=== PATIENT | female | born 1950 | race Caucasian/White ===

== ENCOUNTER 2016-09-22 02:08 | Emergency (ER) | payer MEDICARE, OTHER ==
[~2016-09-22] VITALS: Ht 170.2 cm; Wt 86.4 kg
[2016-09-22] MEDS ORDERED: BLOOD THINNER PO (02:34)
[2016-09-22 05:30] VITALS: BP 129/78
== END 2016-09-22 06:59 | disposition home or self-care (01) ==
LOC: EMS 02:11
DX: S70.02XA Contusion of left hip, initial encounter (principal); I50.9 Heart failure, unspecified; J44.9 Chronic obstructive pulmonary disease, unspecified; J45.909 Unspecified asthma, uncomplicated; F17.210 Nicotine dependence, cigarettes, uncomplicated; Z95.0 Presence of cardiac pacemaker; Z88.1 Allergy status to other antibiotic agents; Z88.8 Allergy status to other drugs, medicaments and biological substances; W19.XXXA Unspecified fall, initial encounter; Y93.E8 Activity, other personal hygiene; Y92.89 Other specified places as the place of occurrence of the external cause; Y99.8 Other external cause status
CPT/HCPCS: 72192; 99284

== ENCOUNTER 2016-12-21 02:15 | Emergency (ER) | payer MEDICARE, OTHER ==
[~2016-12-21] VITALS: Ht 170.2 cm; Wt 86.4 kg
[~2016-12-21 02:15] MED LIST: BLOOD THINNER PO
[2016-12-21] MEDS ORDERED: DILT90 PO (02:39)
[2016-12-21] MEDS ORDERED: ADV100 IH (02:39)
[2016-12-21] MEDS ORDERED: BUPR1FIL3 SL (02:39)
[2016-12-21] MEDS ORDERED: CARI6CAP PO (02:39)
[2016-12-21] MEDS ORDERED: CYCL10 PO (02:39)
[2016-12-21] MEDS ORDERED: AZIT250T9 PO (02:39)
[2016-12-21] MEDS ORDERED: LAMO100 PO (02:39)
[2016-12-21] MEDS ORDERED: FURO40 PO (02:39)
[2016-12-21] MEDS ORDERED: ALBU8HFA4 IH ×2 (02:39→16:57)
[2016-12-21] MEDS ORDERED: OMEP20 PO (02:39)
[2016-12-21] MEDS ORDERED: LAMO200T7 PO (02:39)
[2016-12-21 03:04] LABS: CALCIUM, TOTAL 8.4 mg/dL (8.8-10.5); CREATININE 1.03 mg/dL (0.60-1.30); POTASSIUM 3.6 mmol/L (3.5-5.1)
[2016-12-21 03:06] LABS: ALBUMIN 3.4 g/dL (3.4-5.0); BILIRUBIN,TOTAL 0.9 mg/dL (0.1-1.0); TOTAL PROTEIN, SERUM 6.1 g/dL (6.4-8.2)
[2016-12-21 03:09] LABS: BASOPHILS # (AUTO) 0.01 K/uL (0.00-0.20); BASOPHILS % (AUTO) 0.2 % (0.0-2.0); EOSINOPHILS # (AUTO) 0.17 K/uL (0.00-0.70); EOSINOPHILS % (AUTO) 3.05 % (1.0-6.0); LYMPHOCYTES # (AUTO) 1.1 K/uL (1.0-4.8); MEAN CORPUSCULAR HEMOGLOBIN 34.4 pg (26.0-34.0); MEAN CORPUSCULAR HGB CONC 33.5 G/dL (31.0-37.0); MEAN CORPUSCULAR VOLUME 103 fL (80-100); MONOCYTES # (AUTO) 0.4 K/uL (0.1-1.0); MONOCYTES % (AUTO) 7.4 % (2.0-9.0); NEUTROPHILS # (AUTO) 3.8 K/uL (1.8-7.7); NEUTROPHILS % (AUTO) 69.3 % (40.0-70.0); PLATELET COUNT (AUTO) 145 K/uL (150-450); RED BLOOD CELL COUNT(AUTO) 2.92 MIL/uL (4.00-5.20); RED CELL DISTRIBUTION WIDTH 15.5 % (11.5-14.5)
[2016-12-21] MEDS ORDERED: ALBUTEROL SULFATE 2.5 MG/0.5 ML NEB SOLUTION NEB ONE (04:30)
[2016-12-21] MEDS ORDERED: 0.9% SODIUM CHLORIDE 5 ML NEB SOLUTION NEB ONE (04:32)
[2016-12-21 05:08] VITALS: BP 132/63
[2016-12-21] MEDS ORDERED: BUPR1FIL SL (16:57)
[2016-12-21] MEDS ORDERED: BUME1TAB17 PO (16:57)
[2016-12-21] MEDS ORDERED: KDUR10 PO (16:57)
[2016-12-21] MEDS ORDERED: ADV250 IH (16:57)
[2016-12-21] MEDS ORDERED: FLUT16H NASAL (16:57)
[2016-12-21] MEDS ORDERED: VITAD1000 PO (16:57)
[2016-12-21] MEDS ORDERED: SLOWK8 PO (17:15)
[2016-12-21] MEDS ORDERED: RIVA20TA PO (17:15)
== END 2016-12-21 05:33 | disposition home or self-care (01) ==
LOC: EMS 02:17
DX: J44.9 Chronic obstructive pulmonary disease, unspecified (principal); F17.210 Nicotine dependence, cigarettes, uncomplicated; I11.0 Hypertensive heart disease with heart failure; I50.9 Heart failure, unspecified; Z95.0 Presence of cardiac pacemaker; Z88.1 Allergy status to other antibiotic agents; Z88.8 Allergy status to other drugs, medicaments and biological substances
CPT/HCPCS: 93005; 94640; 99285

== ENCOUNTER 2016-12-21 16:44 | Inpatient (IN) | payer MEDICARE, OTHER ==
[~2016-12-21] VITALS: Ht 170.2 cm; Wt 97.3 kg
[~2016-12-21 16:44] MED LIST changes: +ADV100 IH; +ALBU8HFA4 IH; +AZIT250T9 PO; +BUPR1FIL3 SL; +CARI6CAP PO; +CYCL10 PO; +DILT90 PO; +FURO40 PO; +LAMO100 PO; +LAMO200T7 PO; +OMEP20 PO
[2016-12-21] MEDS ORDERED: KDUR10 PO (16:57)
[2016-12-21] MEDS ORDERED: BUPR1FIL SL (16:57)
[2016-12-21] MEDS ORDERED: VITAD1000 PO (16:57)
[2016-12-21] MEDS ORDERED: ADV250 IH (16:57)
[2016-12-21] MEDS ORDERED: ALBU8HFA4 IH (16:57)
[2016-12-21] MEDS ORDERED: BUME1TAB17 PO (16:57)
[2016-12-21] MEDS ORDERED: FLUT16H NASAL (16:57)
[2016-12-21] MEDS ORDERED: MethylPREDNISolone SOD SUCC 125 MG/2 ML VIAL IVP ONE (17:15)
[2016-12-21] MEDS ORDERED: ALBUTEROL SULFATE 5 MG/ML 20 ML NEB SOLN [BULK] NEB ONE (17:15)
[2016-12-21] MEDS ORDERED: IPRATROPIUM BROMIDE 0.5 MG/2.5 ML NEB SOLUTION NEB ONE (17:15)
[2016-12-21] MEDS ORDERED: RIVA20TA PO (17:15)
[2016-12-21] MEDS ORDERED: SLOWK8 PO (17:15)
[2016-12-21] MEDS ORDERED: 0.9% SODIUM CHLORIDE 5 ML NEB SOLUTION NEB ONE ×2 (17:30→20:22)
[2016-12-21 17:50] LABS: ANION GAP 3 mmol/L (8-16); CALCIUM, TOTAL 8.5 mg/dL (8.8-10.5); CARBON DIOXIDE 31 mmol/L (22-29); CHLORIDE 104 mmol/L (98-107); CREATININE 0.84 mg/dL (0.60-1.30); GLOMERULAR FILTR. RATE CALC > 60 mL/min (>60); GLUCOSE,RANDOM 136 mg/dL (70-110); POTASSIUM 3.5 mmol/L (3.5-5.1); SODIUM SERUM 138 mmol/L (136-145); UREA NITROGEN, BLOOD 14 mg/dL (7-18)
[2016-12-21 17:56] LABS: ALANINE AMINOTRANSFERASE 22 U/L (12-78); ALBUMIN 3.6 g/dL (3.4-5.0); ALKALINE PHOSPHATASE 103 U/L (46-116); ASPARTATE AMINOTRANSFERASE 21 U/L (15-37); TOTAL PROTEIN, SERUM 6.3 g/dL (6.4-8.2)
[2016-12-21 17:59] LABS: B-TYPE NATRIURETIC PEPTIDE 322 pg/mL (0-100)
[2016-12-21 18:12] LABS: BASOPHILS % (AUTO) 0.2 % (0.0-2.0); EOSINOPHILS % (AUTO) 2.4 % (1.0-6.0); HEMATOCRIT 29.1 % (36-46); LYMPHOCYTES # (AUTO) 1.2 K/uL (1.0-4.8); LYMPHOCYTES % (AUTO) 22.3 % (22.0-44.0); MEAN CORPUSCULAR HEMOGLOBIN 34.9 pg (26.0-34.0); MEAN CORPUSCULAR HGB CONC 34.4 G/dL (31.0-37.0); MEAN CORPUSCULAR VOLUME 102 fL (80-100); MONOCYTES # (AUTO) 0.4 K/uL (0.1-1.0); MONOCYTES % (AUTO) 6.7 % (2.0-9.0); NEUTROPHILS # (AUTO) 3.8 K/uL (1.8-7.7); NEUTROPHILS % (AUTO) 68.4 % (40.0-70.0); PLATELET COUNT (AUTO) 151 K/uL (150-450); RED BLOOD CELL COUNT(AUTO) 2.86 MIL/uL (4.00-5.20); RED CELL DISTRIBUTION WIDTH 15.1 % (11.5-14.5)
[2016-12-21] MEDS ORDERED: FUROSEMIDE 40 MG/4 ML VIAL IVP ONE (18:15)
[2016-12-21 18:37] LABS: ABG A-A DIFF O2 35.2 mmHg (10-20.0); ABG BASE EXCESS 6.6 mmol/L (-2.0-3.0); ABG HCO3 29.7 mmol/L (22.0-26.0); ABG METHEMOGLOBIN 0.1 % (0.0-1.5); ABG OXYGEN CONTENT 13.4 mL/dL (15.0-23.0); ABG OXYGEN SATURATION 91.6 % (95.0-98.0); ABG OXYHEMOGLOBIN 87.8 % (94.0-100.0); ABG PCO2 45 mmHg (35-45); ABG PH 7.453 (7.35-7.450); ABG TOTAL HEMOGLOBIN 10.8 G/dL (12.0-18.0); SITE, BLOOD GAS RT RADIAL; SOURCE, BLOOD GAS ARTERIAL; TEMPERATURE, FAHRENHEIT, BG 98.6 FAHREN (96.0-98.6)
[2016-12-21 18:38] LABS: O2 DEVICE,BLOOD GAS ROOM AIR (ROOM AIR)
[2016-12-21] MEDS ORDERED: 0.9% SODIUM CHLORIDE 10 ML SYRINGE IVP PRN (19:30)
[2016-12-21] MEDS ORDERED: ACETAMINOPHEN 325 MG TABLET PO PRN ×2 (19:30→20:30)
[2016-12-21] MEDS ORDERED: IPRATROPIUM BROMIDE 0.5 MG/2.5 ML NEB SOLUTION NEB SCH (20:00)
[2016-12-21] MEDS ORDERED: ALBUTEROL SULFATE 2.5 MG/0.5 ML NEB SOLUTION NEB SCH (20:00)
[2016-12-21] MEDS ORDERED: MAGNESIUM HYDROXIDE SUSPENSION 30 ML UDCUP PO PRN (20:30)
[2016-12-21] MEDS ORDERED: IPRATROPIUM BROMIDE 0.5 MG/2.5 ML NEB SOLUTION NEB PRN (20:30)
[2016-12-21] MEDS ORDERED: ZOLPIDEM TARTRATE 5 MG TABLET PO PRN (20:30)
[2016-12-21] MEDS ORDERED: BISACODYL 10 MG RECTAL RECTAL SUPPOSITORY PR PRN (20:30)
[2016-12-21] MEDS ORDERED: ALBUTEROL SULFATE 2.5 MG/0.5 ML NEB SOLUTION NEB PRN (20:30)
[2016-12-21] MEDS ORDERED: ONDANSETRON HCL 4 MG/2 ML VIAL IVP PRN (20:30)
[2016-12-21 20:35] VITALS: BP 123/61
[2016-12-21] MEDS ORDERED: SODIUM CHLORIDE 0.9% 250 ML IV ONE (20:43)
[2016-12-21] MEDS ORDERED: CefTRIAXone 1 GM/DEXTROSE 50 ML IV SCH (21:00)
[2016-12-21] MEDS: BENZONATATE 100 MG CAPSULE PO SCH (22:04)
[2016-12-21] MEDS: DILTIAZEM HCL 90 MG SR CAPSULE PO SCH (22:04)
[2016-12-21] MEDS: GuaiFENesin SR 600 MG ER TABLET PO SCH (22:04)
[2016-12-21] MEDS: DOCUSATE SODIUM 100 MG CAPSULE PO SCH (22:04)
[2016-12-21] MEDS: CHOLECALCIFEROL (VIT D3) 2,000 UNITS TABLET PO SCH (22:04)
[2016-12-21] MEDS: HYDROCODONE/ACETAMINOPHEN 5-325 MG TABLET PO PRN (22:05)
[2016-12-22] MEDS: MethylPREDNISolone SOD SUCC 125 MG/2 ML VIAL IVP SCH ×3 (00:12→16:58)
[2016-12-22] MEDS: HEPARIN SODIUM,PORCINE 5,000 UNITS/ML VIAL SQ SCH ×2 (00:12→08:00)
[2016-12-22] MEDS: AZITHROMYCIN 500 MG/NS 250 ML IV SCH ×2 (00:13→20:38)
[2016-12-22 00:29] VITALS: BP 116/68
[2016-12-22] MEDS: ALBUTEROL SULFATE 2.5 MG/0.5 ML NEB SOLUTION NEB SCH ×4 (02:06→20:34)
[2016-12-22] MEDS: IPRATROPIUM BROMIDE 0.5 MG/2.5 ML NEB SOLUTION NEB SCH ×4 (02:06→20:34)
[2016-12-22 05:51] VITALS: BP 122/61
[2016-12-22 07:07] LABS: BASOPHILS % (AUTO) 1.2 % (0.0-2.0); EOSINOPHILS % (AUTO) 0 % (1.0-6.0); HEMATOCRIT 33.1 % (36-46); HEMOGLOBIN 11.6 g/dL (12.0-16.0); LYMPHOCYTES # (AUTO) 0.4 K/uL (1.0-4.8); LYMPHOCYTES % (AUTO) 6.2 % (22.0-44.0); MEAN CORPUSCULAR HEMOGLOBIN 35.2 pg (26.0-34.0); MEAN CORPUSCULAR VOLUME 101 fL (80-100); MONOCYTES % (AUTO) 0.4 % (2.0-9.0); NEUTROPHILS # (AUTO) 6.2 K/uL (1.8-7.7); PLATELET COUNT (AUTO) 185 K/uL (150-450); RED BLOOD CELL COUNT(AUTO) 3.29 MIL/uL (4.00-5.20); RED CELL DISTRIBUTION WIDTH 15.5 % (11.5-14.5)
[2016-12-22 07:10] LABS: NEUTROPHILS % (AUTO) 92.2 % (40.0-70.0)
[2016-12-22 07:18] VITALS: BP 121/68
[2016-12-22 07:31] LABS: BILIRUBIN,TOTAL 1.1 mg/dL (0.1-1.0); CREATININE 1.09 mg/dL (0.60-1.30); POTASSIUM 3.9 mmol/L (3.5-5.1); TOTAL PROTEIN, SERUM 7.2 g/dL (6.4-8.2)
[2016-12-22] MEDS: BUMETANIDE 1 MG TABLET PO SCH (08:55)
[2016-12-22] MEDS: BENZONATATE 100 MG CAPSULE PO SCH ×3 (08:56→20:38)
[2016-12-22] MEDS: DILTIAZEM HCL 90 MG SR CAPSULE PO SCH ×2 (08:56→20:38)
[2016-12-22] MEDS: GuaiFENesin SR 600 MG ER TABLET PO SCH ×2 (08:56→20:38)
[2016-12-22] MEDS: CHOLECALCIFEROL (VIT D3) 2,000 UNITS TABLET PO SCH ×2 (08:56→20:38)
[2016-12-22] MEDS: PANTOPRAZOLE SODIUM 40 MG DR TABLET PO SCH (08:56)
[2016-12-22] MEDS: DOCUSATE SODIUM 100 MG CAPSULE PO SCH ×2 (09:00→20:38)
[2016-12-22] MEDS: HYDROCODONE/ACETAMINOPHEN 5-325 MG TABLET PO PRN ×3 (09:05→20:42)
[2016-12-22 12:00] VITALS: BP 157/77
[2016-12-22] MEDS: NICOTINE 21 MG/24 HOUR PATCH TD SCH (14:45)
[2016-12-22 15:25] VITALS: BP 133/78
[2016-12-22] MEDS: RIVAROXABAN 20 MG TABLET PO SCH (18:20)
[2016-12-22 20:10] VITALS: BP 140/81
[2016-12-22] MEDS: LamoTRIgine 100 MG TABLET PO SCH (21:23)
[2016-12-23 00:15] VITALS: BP 124/59
[2016-12-23] MEDS: MethylPREDNISolone SOD SUCC 125 MG/2 ML VIAL IVP SCH ×3 (00:20→18:12)
[2016-12-23] MEDS: ALBUTEROL SULFATE 2.5 MG/0.5 ML NEB SOLUTION NEB SCH ×4 (01:32→20:04)
[2016-12-23] MEDS: IPRATROPIUM BROMIDE 0.5 MG/2.5 ML NEB SOLUTION NEB SCH ×4 (01:33→20:04)
[2016-12-23 04:23] VITALS: BP 114/59
[2016-12-23] MEDS: HYDROCODONE/ACETAMINOPHEN 5-325 MG TABLET PO PRN (05:41)
[2016-12-23 07:30] VITALS: BP 122/72
[2016-12-23] MEDS: CHOLECALCIFEROL (VIT D3) 2,000 UNITS TABLET PO SCH (07:56)
[2016-12-23] MEDS: DOCUSATE SODIUM 100 MG CAPSULE PO SCH ×2 (07:56→20:45)
[2016-12-23] MEDS: BENZONATATE 100 MG CAPSULE PO SCH ×3 (07:56→20:45)
[2016-12-23] MEDS: BUMETANIDE 1 MG TABLET PO SCH (07:56)
[2016-12-23] MEDS: GuaiFENesin SR 600 MG ER TABLET PO SCH ×2 (07:56→20:44)
[2016-12-23] MEDS: DILTIAZEM HCL 90 MG SR CAPSULE PO SCH ×2 (07:57→20:44)
[2016-12-23] MEDS: PANTOPRAZOLE SODIUM 40 MG DR TABLET PO SCH (07:57)
[2016-12-23] MEDS: MORPHINE SULFATE 2 MG/ML SYRINGE IVP PRN ×3 (08:04→22:03)
[2016-12-23] MEDS: NICOTINE 21 MG/24 HOUR PATCH TD SCH (09:00)
[2016-12-23] MEDS ORDERED: CARIPRAZINE 6 MG PO SCH (09:00)
[2016-12-23 11:40] VITALS: BP 137/69
[2016-12-23] MEDS ORDERED: PRED20 PO (12:15)
[2016-12-23] MEDS ORDERED: AZIT250T9 PO (12:16)
[2016-12-23 15:30] VITALS: BP 130/85
[2016-12-23] MEDS: RIVAROXABAN 20 MG TABLET PO SCH (18:11)
[2016-12-23 19:59] VITALS: BP 119/60
[2016-12-23] MEDS: LamoTRIgine 100 MG TABLET PO SCH (20:45)
[2016-12-23] MEDS: AZITHROMYCIN 500 MG/NS 250 ML IV SCH (22:24)
[2016-12-24] MEDS: CHOLECALCIFEROL (VIT D3) 2,000 UNITS TABLET PO SCH ×2 (00:38→09:19)
[2016-12-24] MEDS: MethylPREDNISolone SOD SUCC 125 MG/2 ML VIAL IVP SCH ×3 (00:40→12:00)
[2016-12-24 00:48] VITALS: BP 134/68
[2016-12-24] MEDS: ALBUTEROL SULFATE 2.5 MG/0.5 ML NEB SOLUTION NEB SCH ×2 (02:28→08:17)
[2016-12-24] MEDS: IPRATROPIUM BROMIDE 0.5 MG/2.5 ML NEB SOLUTION NEB SCH ×2 (02:28→08:17)
[2016-12-24] MEDS: MORPHINE SULFATE 2 MG/ML SYRINGE IVP PRN ×3 (02:51→11:02)
[2016-12-24] MEDS: HYDROCODONE/ACETAMINOPHEN 5-325 MG TABLET PO PRN ×2 (04:05→09:15)
[2016-12-24 04:24] VITALS: BP 126/73
[2016-12-24 08:38] VITALS: BP 136/77
[2016-12-24] MEDS: BENZONATATE 100 MG CAPSULE PO SCH (09:17)
[2016-12-24] MEDS: DOCUSATE SODIUM 100 MG CAPSULE PO SCH (09:17)
[2016-12-24] MEDS: GuaiFENesin SR 600 MG ER TABLET PO SCH (09:18)
[2016-12-24] MEDS: PANTOPRAZOLE SODIUM 40 MG DR TABLET PO SCH (09:18)
[2016-12-24] MEDS: BUMETANIDE 1 MG TABLET PO SCH (09:19)
[2016-12-24] MEDS: NICOTINE 21 MG/24 HOUR PATCH TD SCH (09:20)
[2016-12-24] MEDS: DILTIAZEM HCL 90 MG SR CAPSULE PO SCH (09:20)
[2016-12-24 11:48] VITALS: BP 116/68
== END 2016-12-24 12:07 | disposition short-term general hospital (02) | DRG 190 ==
LOC: EMS 16:46 → 5N 20:11
PROVIDERS: ADMIT Internal Medicine; ATTEND Internal Medicine
DX: J44.1 Chronic obstructive pulmonary disease with (acute) exacerbation (principal); I50.43 Acute on chronic combined systolic (congestive) and diastolic (congestive) heart failure; I48.2 Chronic atrial fibrillation; I42.9 Cardiomyopathy, unspecified; E66.01 Morbid (severe) obesity due to excess calories; I11.0 Hypertensive heart disease with heart failure; D64.9 Anemia, unspecified; K21.9 Gastro-esophageal reflux disease without esophagitis; Z88.1 Allergy status to other antibiotic agents; Z88.8 Allergy status to other drugs, medicaments and biological substances; F17.210 Nicotine dependence, cigarettes, uncomplicated; H40.9 Unspecified glaucoma; I49.3 Ventricular premature depolarization; Z79.01 Long term (current) use of anticoagulants; Z95.0 Presence of cardiac pacemaker; Z68.33 Body mass index [BMI] 33.0-33.9, adult
CPT/HCPCS: 71250; 82805; 93005; 93306; 94640; 94644; 96374; 96375; 99285; J0456; J0696; J1644; J1940; J2270; J2405; J2930; J7050